=== PATIENT | male | born 1970 | race Caucasian/White ===

== ENCOUNTER 2016-11-10 07:36 | Emergency (ER) | payer OTHER ==
[~2016-11-10] VITALS: Ht 177.8 cm; Wt 78.9 kg
[~2016-11-10 07:36] MED LIST: CPR500T PO; CYCL10TA9 PO; HYDR-3583 PO; IBP800T PO; NAPR-243 PO; NAPR500T3 PO; PHEN200T27 PO; SILV20CR14 TP
--- NOTE | 2016-11-10 08:24 | ED Upper Extremity ---
General Chief Complaint: Upper Extremity Stated Complaint: RIGHT WRIST INJURY Nursing Triage Note: PT CO OF R WRIST PAIN HIT W MACHINERY AT WORK THIS AM. PT HAS ABRASION NOTED ON WRIST Nursing Sepsis Screen: No Definite Risk Source: patient Exam Limitations: no limitations History of Present Illness Time seen by provider: 08:05 Initial Comments This 46-year-old gentleman presents to the emergency room with injury to the right wrist. The injury occurred at work when he was unpacking a piece of equipment. There was a spring loaded cage made of half inch metal bars that struck his right wrist at high velocity. He has a minor injury to the left hand as well that is no longer painful. He has trouble with range of motion of the wrist and hand secondary to pain in the right wrist. There is a streak of erythema associated with the area of tenderness on the radial aspect of the right wrist. The injury occurred at approximately 05:20. Onset: this morning Allergies and Home Medications Allergies Coded Allergies: No Known Drug Allergies (Unverified , 12/12/11) Home Medications No Active Prescriptions or Reported Meds Constitutional: no symptoms reported EENTM: no symptoms reported Respiratory: no symptoms reported Cardiovascular: no symptoms reported Gastrointestinal: no symptoms reported Genitourinary: no symptoms reported Musculoskeletal: see HPI Skin: see HPI Psychiatric/Neurological: No Symptoms Reported Past Eppbqon-Djjrea-Blrqby Hx Patient Social History Alcohol Use: Rarely Uses Recreational Drug Use: No Smoking Status: Never a Smoker Recent Foreign Travel: No Contact w/Someone Who Travel: No Recent Infectious Disease Expo: No Recent Hopitalizations: No Immunizations Up To Date Tetanus Booster (TDap): Less than 5yrs Seasonal Allergies Seasonal Allergies: No Surgeries HX Surgeries: No Respiratory Hx Respiratory Disorders: No Cardiovascular Hx Cardiac Disorders: Yes Cardiac Disorders: Hypertension Neurological Hx Neurological Disorders: No Reproductive System Hx Reproductive Disorders: No Genitourinary Hx Genitourinary Disorders: No Gastrointestinal Hx Gastrointestinal Disorders: No Musculoskeletal Hx Musculoskeletal Disorders: Yes ([place] reports arthritis of [place]) Musculoskeletal Disorders: Arthritis Endocrine Hx Endocrine Disorders: No HEENT HX ENT Disorders: No Cancer Hx Cancer: No Psychosocial Hx Psychiatric Problems: No Integumentary HX Skin/Integumentary Disorder: No Blood Transfusions Hx Blood Disorders: No Family Medical History Significant Family History: No Pertinent Family Hx Physical Exam Vital Signs Vital Sign - Last 12Hours 11/10/16 07:40 Temp 97.8 Pulse 75 Resp 18 B/P 120/96 Pulse Ox 99 Capillary Refill : Less Than 3 Seconds General Appearance: WD/WN no apparent distress HEENT: normal ENT inspection Cardiovascular: regular rate, rhythm no edema no murmur Respiratory: lungs clear normal breath sounds no respiratory distress no accessory muscle use Shoulder: normal inspection no evidence of injury Elbow/Forearm: normal inspection, no evidence of injury, normal ROM Wrist: Yes bone tenderness, Yes limited ROM, Yes swelling (erythema and tenderness over the radial aspect of the wrist. Range of motion in the wrist and hand decreased secondary to pain. 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 See report below: NAME: AGATHARYDER Pires [facility] REC#: [id number] PT STATUS: REG ER : 1970 PHYSICIAN: ANNA MARIE HOOKS MD ADMIT DATE: 11/10/16/ER Draft Date of Exam:11/10/16 WRIST, RIGHT, 3 VIEWS OR MORE 4 views of the right wrist. INDICATION: Injury. FINDINGS: There is no fracture, dislocation, or radiopaque foreign body. Joint alignment is satisfactory. IMPRESSION: Unremarkable exam. Dictated on workstation # [id number] Dict: 11/10/1627 Trans: 11/10/16 0835 [id number] Interpreted by: NATHANIEL GUTIERRES MD Departure Impression Impression: Primary Impression: Contusion of wrist, right Disposition: 01 HOME, SELF-CARE Condition: Stable Departure-Patient Inst. Decision time for Depature: 08:45 Referrals: NO,LOCAL PHYSICIAN (PCP/Family) Primary Care Physician Patient Instructions: Contusion (DC) Add. Discharge Instructions: Rest, icing in 20 minute intervals, and elevation should help with pain and swelling. Use of a wrist brace is optional to help alleviate strain on the wrist. Follow-up with occupational health for full clearance. You may use ibuprofen up to 800 mg every 8 hours as needed for pain. Add Tylenol ( acetaminophen) up to 1000 mg every 6 hours as needed for additional pain relief. All discharge instructions reviewed with patient and/or family. Voiced understanding. Scripts No Active Prescriptions or Reported Meds ANNA MARIE HOOKS MD Nov 10, 2016 08:24
--- NOTE | 2016-11-10 08:35 | Diagnostic Imaging Report ---
4 views of the right wrist. INDICATION: Injury. FINDINGS: There is no fracture, dislocation, or radiopaque foreign body. Joint alignment is satisfactory. IMPRESSION: Unremarkable exam. Dictated by: Dictated on workstation # [id number]
[2016-11-10 08:50] VITALS: BP 120/96
== END 2016-11-10 08:50 | disposition home or self-care (01) ==
LOC: EDUNIT# 07:36 → ER 07:40
DX: S60.211A Contusion of right wrist, initial encounter (principal); W31.9XXA Contact with unspecified machinery, initial encounter; Y92.59 Other trade areas as the place of occurrence of the external cause; Y99.0 Civilian activity done for income or pay
CPT/HCPCS: 73110; 99282

== ENCOUNTER 2017-01-12 15:28 | Emergency (ER) | payer OTHER ==
[~2017-01-12] VITALS: Ht 177.8 cm; Wt 78.9 kg
[2017-01-12] MEDS ORDERED: SULF1TAB35 PO (16:29)
--- NOTE | 2017-01-12 16:30 | ED Integumentary General ---
General Chief Complaint: Skin/Wound Problems Stated Complaint: BUG BITE ON L HAND Nursing Triage Note: PT C/O POSSIBLE SPIDER BITE TO L HAND. Source: patient Exam Limitations: no limitations History of Present Illness Time seen by provider: 16:15 Initial Comments This 46-year-old gentleman presents with a pustular lesion on the dorsum of the left hand with erythema extending beyond and a 2-4 cm radius. The lesion started yesterday and was pruritic but today became pustular and painful. He denies any fever or systemic symptoms. He does have a history of skin infections. Allergies and Home Medications Allergies Coded Allergies: No Known Drug Allergies (Unverified , 12/12/11) Home Medications Sulfamethoxazole/Trimethoprim 1 Each Tablet, 1 EACH PO BID, #14 Prescribed by: ANNA MARIE MEDELLIN on 01/12/17 6200 Constitutional: no symptoms reported EENTM: no symptoms reported Respiratory: no symptoms reported Cardiovascular: no symptoms reported Gastrointestinal: no symptoms reported Musculoskeletal: no symptoms reported Skin: see HPI Psychiatric/Neurological: No Symptoms Reported Past Zlpisgq-Qejrop-Rxunjj Hx Patient Social History Alcohol Use: Denies Use Recreational Drug Use: No Smoking Status: Never a Smoker 2nd Hand Smoke Exposure: No Recent Foreign Travel: No Contact w/Someone Who Travel: No Recent Infectious Disease Expo: No Recent Hopitalizations: No Immunizations Up To Date Tetanus Booster (TDap): Less than 5yrs Seasonal Allergies Seasonal Allergies: No Surgeries HX Surgeries: No Respiratory Hx Respiratory Disorders: No Cardiovascular Hx Cardiac Disorders: Yes Cardiac Disorders: Hypertension Neurological Hx Neurological Disorders: No Reproductive System Hx Reproductive Disorders: No Genitourinary Hx Genitourinary Disorders: No Gastrointestinal Hx Gastrointestinal Disorders: No Musculoskeletal Hx Musculoskeletal Disorders: Yes ([place] reports arthritis of [place]) Musculoskeletal Disorders: Arthritis Endocrine Hx Endocrine Disorders: No HEENT HX ENT Disorders: No Cancer Hx Cancer: No Psychosocial Hx Psychiatric Problems: No Integumentary HX Skin/Integumentary Disorder: No Blood Transfusions Hx Blood Disorders: No Family Medical History Significant Family History: No Pertinent Family Hx Physical Exam Vital Signs Vital Sign - Last 12Hours 01/12/17 15:54 Temp 98.3 Pulse 75 Resp 18 B/P (MAP) 131/92 Pulse Ox 98 O2 Delivery Room Air Capillary Refill : Less Than 3 Seconds Progress/Results/Core Measures Results/Orders Vital Signs/I&O Vital Sign - Last 12Hours 01/12/17 01/12/17 15:54 16:42 Temp 98.3 98.3 Pulse 75 75 Resp 18 18 B/P (MAP) 131/92 Pulse Ox 98 98 O2 Delivery Room Air Blood Pressure Mean: 105 Progress Note : Progress Note Skin was cleaned with alcohol. The pustular lesion was unroofed with a scalpel and a small quantity of purulent drainage was expressed. The skin was then again cleaned with alcohol. Antibiotic ointment was applied. Margins of the erythema were marked with a skin marker. A Band-Aid was placed over the lesion. Return precautions were discussed and Bactrim DS was prescribed. Departure Impression Impression: Primary Impression: Cellulitis and abscess of hand Disposition: HOME, SELF-CARE Condition: Improved Departure-Patient Inst. Decision time for Depature: 16:15 Referrals: NO,LOCAL PHYSICIAN (PCP/Family) Primary Care Physician Patient Instructions: Skin Abscess, Cellulitis (Skin Infection), Adult (DC) Add. Discharge Instructions: Track the progression of your cellulitis. If the redness extends significantly beyond the borders marked in the ER, please return to care. If you develop worsening symptoms such as fever or larger abscess development, please return to the emergency room. You may continue applying antibiotic cream until healed. Complete your antibiotics as prescribed. Please start your antibiotics today. All discharge instructions reviewed with patient and/or family. Voiced understanding. Scripts Sulfamethoxazole/Trimethoprim (Bactrim Ds Tablet) 1 Each Tablet 1 EACH PO BID, #14 TAB Prov: ANNA MARIE HOOKS MD 01/12/17 ANNA MARIE HOOKS MD January 12, 2017 16:30
[2017-01-12 16:42] VITALS: BP 131/92
== END 2017-01-12 16:42 | disposition home or self-care (01) ==
LOC: EDUNIT# 15:28 → ER 15:30
DX: L03.114 Cellulitis of left upper limb (principal)
CPT/HCPCS: 99281

== ENCOUNTER 2019-07-03 20:24 | Observation (INO) | payer BC, OTHER ==
[~2019-07-03] VITALS: Ht 180.3 cm; Wt 79.8 kg
[~2019-07-03 20:24] MED LIST changes: +NAPR-915 PO; -NAPR500T3 PO; +SULF1TAB35 PO
[2019-07-03] MEDS ORDERED: RT-ALBUTEROL SULF 2.5 MG/3 ML PRE-MIX VIAL INH STA (20:32)
[2019-07-03] MEDS ORDERED: methylPREDNISolone 125 MG (Solu-MEDROL) VIAL IV STA (20:32)
[2019-07-03] MEDS ORDERED: DEXAMETHASONE 10 MG/ML (DECADRON) 1 ML VIAL ONE (20:37)
[2019-07-03] MEDS ORDERED: DEXAMETHASONE 4 MG/ML SDV (DECADRON) IH ONE (20:45)
[2019-07-03] MEDS ORDERED: RT-ALBUTEROL/IPRATROPIUM 3 ML (DUONEB) VIAL INH ONE (20:45)
[2019-07-03 20:47] LABS: BASOPHILS # (AUTO) 0.1 10^3/uL (0.0-0.1); BASOPHILS % (AUTO) 1 % (0-10); EOSINOPHILS % (AUTO) 9 % (0-10); HEMATOCRIT 45 % (40-54); HEMOGLOBIN 15.6 G/DL (13.3-17.7); LYMPHOCYTES # (AUTO) 3.8 X 10^3 (1.0-4.0); LYMPHOCYTES % (AUTO) 32 % (12-44); MEAN CORPUSCULAR HEMOGLOBIN 32 PG (25-34); MEAN CORPUSCULAR HGB CONC 35 G/DL (32-36); MEAN CORPUSCULAR VOLUME 91 FL (80-99); MONOCYTES % (AUTO) 8 % (0-12); NEUTROPHILS # (AUTO) 6.1 X 10^3 (1.8-7.8); NEUTROPHILS % (AUTO) 51 % (42-75); PLATELET COUNT 253 10^3/uL (130-400); RED CELL DISTRIBUTION WIDTH 12.5 % (10.0-14.5)
--- NOTE | 2019-07-03 20:49 | ED Respiratory ---
General Chief Complaint: Respiratory Problems Stated Complaint: SOA Source: patient, spouse History of Present Illness Date Seen by Provider: Jul 03, 2019 Time Seen by Provider: 20:29 Initial Comments PT ARRIVES VIA POV FROM HOME C/O SHORTNESS OF BREATH PT STATES HE HAS ASTHMA, AND HAS HAD INCREASING SHORTNESS OF BREATH OVER THE LAST WEEK, AND HAS BEEN MUCH WORSE SINCE YESTERDAY HAS BEEN USING ALBUTEROL PROAIR INHALER WITHOUT RELIEF STATES THAT SYMPTOMS HAVE ACTUALLY BEEN GOING ON FOR OVER A MONTH--PT IS A RUNNER/RUNS MARATHONS, AND IN THE LAST MONTH, HE HAS NOT BEEN ABLE TO COMPLETE 2 DIFFERENT MARATHONS--HAD TO STOP AFTER THE FIRST MILE EACH TIME. OVERALL EXERCISE TOLERANCE HAS BEEN DECREASING OVER THE LAST FEW MONTHS, DUE TO BREATHING ISSUES. ALSO REPORTS THAT HE WAKES UP EVERY NIGHT WITH DIFFICULTY BREATHING AND HAS TO USE HIS INHALER. SHE STATES HE IS USING HIS INHALER MUCH MORE THAN HE IS SUPPOSED TO. DOES NOT APPEAR TO BE SEASONAL. PT DENIES FEVER CHEST FEELS TIGHT, BUT ONLY DUE TO BREATHING. NOT HAVING CHEST PAIN OTHER BURNS. ONLY HAS OCCASIONAL COUGH NO ALLERGY OR URI SYMPTOMS HAS NOT SOUGHT CARE UNTIL TODAY. STATES HE HAD ASTHMA A CHILD, THEN SORT OF GREW OUT OF IT, THEN STARTING HAVING PROBLEMS AN ADULT. PT HAS NEVER SEEN A HEEL MOLDER. PCP: DR. DAMION GOMEZ--HAS NOT SEEN IN OVER A YEAR ALSO GOES TO [place]--HAS APPOINTMENT WITH THEM NEXT MONTH FOR ROUTINE EXAM. Allergies and Home Medications Allergies Coded Allergies: No Known Drug Allergies (Unverified , 12/12/11) Home Medications Sulfamethoxazole/Trimethoprim 1 Each Tablet, 1 EACH PO BID Prescribed by: ANNA MARIE MEDELLIN on 01/12/17 7459 Review of Systems Review of Systems Constitutional: no symptoms reported EENTM: no symptoms reported Respiratory: see HPI, cough, dyspnea on exertion, short of breath, wheezing Cardiovascular: see HPI, chest pain; No edema, No palpitations, No syncope, No other Gastrointestinal: no symptoms reported Genitourinary: no symptoms reported Musculoskeletal: no symptoms reported Skin: no symptoms reported Psychiatric/Neurological: No Symptoms Reported Hematologic/Lymphatic: No Symptoms Reported Immunological/Allergic: no symptoms reported Past Zluwxmx-Okybpx-Nxgdfj Hx Patient Social History Alcohol Use: Denies Use Recreational Drug Use: No Smoking Status: Never a Smoker 2nd Hand Smoke Exposure: No Recent Foreign Travel: No Contact w/Someone Who Travel: No Recent Hopitalizations: No Immunizations Up To Date Tetanus Booster (TDap): Less than 5yrs Seasonal Allergies Seasonal Allergies: No Past Medical History Surgeries: No Respiratory: Yes Asthma Cardiac: Yes Hypertension Neurological: No Reproductive Disorders: No Genitourinary: No Gastrointestinal: No Musculoskeletal: Yes Arthritis Endocrine: No HEENT: No Cancer: No Psychosocial: No Integumentary: No Blood Disorders: No Family Medical History No Pertinent Family Hx Physical Exam Vital Signs - First Documented 07/03/19 20:29 Temp 36.6 Pulse 81 Resp 30 B/P (MAP) 148/81 (103) Pulse Ox 94 O2 Delivery Room Air Capillary Refill : Height: 5'10" Weight: 174lbs. oz. 78.319662bq; 20.50 BMI Method:Stated General Appearance: WD/WN, mild distress HEENT: PERRL/EOMI, normal ENT inspection, TMs normal, pharynx normal Neck: normal inspection Respiratory: respiratory distress, decreased breath sounds, accessory muscle use; No rales, No rhonchi; wheezing, expiration, other (MILD RESPIRATORY DISTRESS. 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, no motor/sensory deficits, alert, oriented x 3 Skin: normal color, warm/dry Progress/Results/Core Measures Suspected Sepsis SIRS Temperature: Pulse: Respiratory Rate: Laboratory Tests 07/03/19 20:32: White Blood Count 12.0H Blood Pressure / Mean: Laboratory Tests 07/03/19 20:32: Creatinine 0.82, INR Comment 1.0, Platelet Count 253, Total Bilirubin 0.5 Results/Orders Lab Results Laboratory Tests Test 07/03/19 20:32 Range/Units White Blood Count 12.0 H 4.3-11.0 10^3/uL Red Blood Count 4.87 4.35-5.85 10^6/uL Hemoglobin 15.6 13.3-17.7 G/DL Hematocrit 45 40-54 % Mean Corpuscular Volume 91 80-99 FL Mean Corpuscular Hemoglobin 32 25-34 PG Mean Corpuscular Hemoglobin Concent 35 32-36 G/DL Red Cell Distribution Width 12.5 10.0-14.5 % Platelet Count 253 130-400 10^3/uL Mean Platelet Volume 11.0 H 7.4-10.4 FL Neutrophils (%) (Auto) 51 42-75 % Lymphocytes (%) (Auto) 32 12-44 % Monocytes (%) (Auto) 8 0-12 % Eosinophils (%) (Auto) 9 0-10 % Basophils (%) (Auto) 1 0-10 % Neutrophils # (Auto) 6.1 1.8-7.8 X 10^3 Lymphocytes # (Auto) 3.8 1.0-4.0 X 10^3 Monocytes # (Auto) 1.0 0.0-1.0 X 10^3 Eosinophils # (Auto) 1.0 H 0.0-0.3 10^3/uL Basophils # (Auto) 0.1 0.0-0.1 10^3/uL Prothrombin Time 13.6 12.2-14.7 SEC INR Comment 1.0 0.8-1.4 Activated Partial Thromboplast Time 25 24-35 SEC Sodium Level 143 135-145 MMOL/L Potassium Level 4.2 3.6-5.0 MMOL/L Chloride Level 107 98-107 MMOL/L Carbon Dioxide Level 26 21-32 MMOL/L Anion Gap 10 5-14 MMOL/L Blood Urea Nitrogen 11 7-18 MG/DL Creatinine 0.82 0.60-1.30 MG/DL Estimat Glomerular Filtration Rate > 60 BUN/Creatinine Ratio 13 Glucose Level 87 70-105 MG/DL Calcium Level 10.1 8.5-10.1 MG/DL Corrected Calcium 8.5-10.1 MG/DL Magnesium Level 2.2 1.6-2.4 MG/DL Total Bilirubin 0.5 0.1-1.0 MG/DL Aspartate Amino Transf (AST/SGOT) 17 5-34 U/L Alanine Aminotransferase (ALT/SGPT) 27 0-55 U/L Alkaline Phosphatase 59 40-136 U/L Total Creatine Kinase 37 30-200 U/L Creatine Kinase MB 2.3 <6.6 NG/ML Myoglobin 42.6 10.0-92.0 NG/ML Troponin I < 0.028 <0.028 NG/ML B-Type Natriuretic Peptide 22.1 <100.0 PG/ML Total Protein 7.4 6.4-8.2 GM/DL Albumin 4.6 H 3.2-4.5 GM/DL Micro Results Microbiology 07/03/19 Influenza Types A,B Antigen (PATRICIA) - Final, Complete My Orders Orders - REGAN FLORES DO Ed Iv/Invasive Line Start (07/03/19 20:32) Ekg Tracing (07/03/19:32) O2 (07/03/19:32) Monitor-Rhythm Ecg Trace Only (07/03/19:32) Chest 1 View, Ap/Pa Only (07/03/19:32) BNP (07/03/19:32) Cbc With Automated Diff (07/03/19:) Comprehensive Metabolic Panel (07/03/19) Creatine Kinase (07/03/19:) Creatine Kinase Mb (07/03/19:32) Magnesium (07/03/19:32) Protime With Inr (07/03/19:) Partial Thromboplastin Time (07/03/19:32) Troponin I (07/03/19:32) Influenza A And B Antigens (07/03/19:32) Myoglobin Serum (07/03/19:32) Albuterol Pre-Mix Nebs (Rt) (Proventil (07/03/19:32) Albuterol/Ipra Inhalation Soln (Duoneb I (07/03/19 20:45) Dexamethasone Injection (Decadron Inject (07/03/19 20:45) Rt Request For Service (07/03/19:32) Methylprednisolone Sod Succ (Solu-Medrol (07/03/19 20:32) Svn Small Volume Nebulizer (07/03/19 20:32) Svn Small Volume Nebulizer (07/03/19 20:32) Dexamethasone Injection (Decadron Inject (07/03/19 20:37) Magnesium 1 Gm/100 Ml Ivpb (Magnesium Doe (07/03/19 21:45) Medications Given in ED Current Medications Medications Dose Ordered Sig/Elizabeth Route Start Time Stop Time Status Last Admin Dose Admin Albuterol/ Ipratropium 3 ml ONCE ONCE INH 07/03/19 20:45 07/03/19 20:46 DC 10/22/19 20:46 3 ML Dexamethasone Sodium Phosphate 20 mg ONCE ONCE IH 07/03/19 20:45 07/03/19 20:46 DC 07/03/19 20:47 20 MG Vital Signs/I&O 07/03/19 07/03/19 20:29 20:49 Temp 36.6 Pulse 81 Resp 30 B/P (MAP) 148/81 (103) Pulse Ox 94 94 O2 Delivery Room Air Room Air Capillary Refill : Progress Note : Progress Note GIVEN HOUR LONG NEB TREATMENT, IV STEROIDS WITH MODERATE IMPROVEMENT IN SYMPTOMS. PT'S BREATHING IS NO LONGER LABORED, INCREASED AERATION, WITH DECREASED WHEEZING, BUT STILL WITH MODERATE AMOUNT OF RESIDUAL WHEEZING BILATERALLY ECG Initial ECG Impression Date: Jul 03, 2019 Initial ECG Impression Time: 20:34 Initial ECG Rate: 74 Initial ECG Rhythm: Normal Sinus Diagnostic Imaging Comments CXR--NO ACUTE PROCESS, PER RADIOLOGIST REPORT AT 2130 Reviewed: Reviewed by Me Departure Communication (Admissions) 2137--SPOKE WITH DR. DAMION GOMEZ, ACCEPTS PT FOR ADMIT. WILL CONSULT DR. OCONNELL IN AM. Impression Primary Impression: Asthma with acute exacerbation in adult Disposition: 09 ADMITTED INPATIENT Condition: Improved Admissions Decision to Admit Reason: Admit from ER (General) Decision to Admit/Date: Jul 03, 2019 Time/Decision to Admit Time: 21:40 Departure-Patient Inst. Referrals: NO,LOCAL PHYSICIAN (PCP/Family) Primary Care Physician REGAN FLORES DO Jul 03, 2019 20:49
[2019-07-03 21:11] LABS: ALANINE AMINOTRANSFERASE 27 U/L (0-55); ALBUMIN 4.6 GM/DL (3.2-4.5); ALKALINE PHOSPHATASE 59 U/L (40-136); BILIRUBIN,TOTAL 0.5 MG/DL (0.1-1.0); BUN/CREATININE RATIO 13; CALCIUM 10.1 MG/DL (8.5-10.1); CARBON DIOXIDE 26 MMOL/L (21-32); CHLORIDE 107 MMOL/L (98-107); CREATINE KINASE 37 U/L (30-200); CREATININE SERUM 0.82 MG/DL (0.60-1.30); GFR ESTIMATED > 60; GLUCOSE 87 MG/DL (70-105); MAGNESIUM 2.2 MG/DL (1.6-2.4); POTASSIUM 4.2 MMOL/L (3.6-5.0); SODIUM 143 MMOL/L (135-145); TOTAL PROTEIN 7.4 GM/DL (6.4-8.2)
[2019-07-03 21:14] LABS: PROTHROMBIN TIME PATIENT 13.6 SEC (12.2-14.7)
[2019-07-03 21:18] LABS: CREATINE KINASE MB 2.3 NG/ML (<6.6)
--- NOTE | 2019-07-03 21:30 | Diagnostic Imaging Report ---
Clinical Indication: Patient with shortness of air. Exam: Portable chest x-ray upright view. Comparisons: None. Findings: Lungs/pleura: Lungs are clear. There is no pneumothorax. There is no pleural effusion. Mediastinum: Unremarkable. Pulmonary vasculature: Unremarkable. Heart: Unremarkable. Bones/extrathoracic soft tissue: Unremarkable. Impression: There is no radiographic evidence of acute cardiopulmonary process. Dictated by: Dictated on workstation # [id number]
[2019-07-03] MEDS: MAGNESIUM 1 GM/100 ML IVPB 100 ML IV SCH ×2 (21:48→22:41)
--- NOTE | 2019-07-03 22:05 | NUR ---
RYDER SNIDER JR admitted to room 424-1, with an admitting diagnosis of ASTHMA EXACERBATION, on 07/03/19 from ED via WC, accompanied by STAFF AND S.O.RYDER SNIDER JR introduced to surroundings, call light, bed controls, phone, TV, temperature control, lights, meal times, smoking policy, visitor policy, side rail policy, bathrooms and showers.
[2019-07-03 22:12] VITALS: BP 143/94
[2019-07-03 23:50] VITALS: BP 133/88
[2019-07-04] VITALS: BP 133/88
[2019-07-04] MEDS ORDERED: RT-ALBUTEROL/IPRATROPIUM 3 ML (DUONEB) VIAL INH PRN (01:15)
[2019-07-04] MEDS: methylPREDNISolone 125 MG (Solu-MEDROL) VIAL IVP SCH ×2 (02:14→08:03)
[2019-07-04 04:15] VITALS: BP 126/87
[2019-07-04 05:37] LABS: BASOPHILS % (AUTO) 0 % (0-10); EOSINOPHILS % (AUTO) 0 % (0-10); HEMATOCRIT 43 % (40-54); HEMOGLOBIN 15.3 G/DL (13.3-17.7); LYMPHOCYTES # (AUTO) 1.2 X 10^3 (1.0-4.0); LYMPHOCYTES % (AUTO) 11 % (12-44); MEAN CORPUSCULAR HEMOGLOBIN 32 PG (25-34); MEAN CORPUSCULAR HGB CONC 35 G/DL (32-36); MEAN CORPUSCULAR VOLUME 91 FL (80-99); MEAN PLATELET VOLUME 11.1 FL (7.4-10.4); MONOCYTES # (AUTO) 0.1 X 10^3 (0.0-1.0); MONOCYTES % (AUTO) 1 % (0-12); NEUTROPHILS # (AUTO) 9.9 X 10^3 (1.8-7.8); NEUTROPHILS % (AUTO) 88 % (42-75); PLATELET COUNT 246 10^3/uL (130-400); RED CELL DISTRIBUTION WIDTH 12.3 % (10.0-14.5); WHITE BLOOD COUNT 11.2 10^3/uL (4.3-11.0)
[2019-07-04 06:07] LABS: ALANINE AMINOTRANSFERASE 21 U/L (0-55); ALBUMIN 4.4 GM/DL (3.2-4.5); ALKALINE PHOSPHATASE 57 U/L (40-136); BILIRUBIN,TOTAL 0.6 MG/DL (0.1-1.0); BUN/CREATININE RATIO 17; CALCIUM 9.7 MG/DL (8.5-10.1); CARBON DIOXIDE 22 MMOL/L (21-32); CHLORIDE 107 MMOL/L (98-107); CREATININE SERUM 0.82 MG/DL (0.60-1.30); GFR ESTIMATED > 60; GLUCOSE 146 MG/DL (70-105); MAGNESIUM 2.4 MG/DL (1.6-2.4); POTASSIUM 4.5 MMOL/L (3.6-5.0); SODIUM 141 MMOL/L (135-145); TOTAL PROTEIN 6.9 GM/DL (6.4-8.2)
[2019-07-04] MEDS ORDERED: RT-ALBUTEROL/IPRATROPIUM 3 ML (DUONEB) VIAL INH SCH (07:00)
[2019-07-04 08:00] VITALS: BP 138/82
[2019-07-04] MEDS ORDERED: RT-BUDESONIDE NEBS 0.5 MG/2ML (PULMICORT) AMP INH SCH (09:00)
--- NOTE | 2019-07-04 10:19 | History & Physical ---
History of Present Illness History of Present Illness Reason for visit/HPI 49 yo M admitted for acute asthma exacerbation. He has been have more trouble with his asthma recently- waking up with coughing and using his albuterol that does help. He recently attempted a half marathon in [place] (2 weeks ago) and had to stop after about 3 miles. He thinks anxiety played a role due to thousands of runners. Similar thing happened in stopping at the 1 mile manuel. [facility]. He tried running on Tuesday07/01/19 and he has trouble breathing so he stopped (there were only 2 runners); so anxiety did not play a role in this one. Pt presenting last night wheezing and having trouble breathing. An hour long breathing treatment, magnesium, duonebs, and IV steroids helped. He is feeling better this AM, still not desiring to run but feeling good enough to go home. He plans to start running in the Spring again. He does run to work (about [address]) and usually has no trouble running doing this. He denies any other signs of illness. Date of Admission Jul 03, 2019 at 21:38 Date Seen by a Provider: Jul 04, 2019 Time Seen by a Provider: 08:10 I consulted on this patient on 07/04/19 10:13 Attending Physician Kwesi Gomez MD Admitting Physician Kwesi Gomez MD Consult Allergies and Home Medications Allergies Coded Allergies: No Known Drug Allergies (Unverified , 12/12/11) Patient Home Medication List Home Medication List Reviewed: Yes Past Nqrzbpt-Ybjrsf-Azarna Hx Patient Social History Alcohol Use: Denies Use Recreational Drug Use: No Smoking Status: Never a Smoker 2nd Hand Smoke Exposure: No Recent Foreign Travel: No Contact w/other who traveled: No Recent Hopitalizations: No Recent Infectious Disease Expo: No Immunizations Up To Date Tetanus Booster (TDap): Less than 5yrs Seasonal Allergies Seasonal Allergies: No Surgeries No Respiratory Yes Cardiovascular Yes Hypertension Neurological No Reproductive System Hx Reproductive Disorders: No Genitourinary No Gastrointestinal No Musculoskeletal Yes Arthritis Endocrine History of Endocrine Disorders: No HEENT History of HEENT Disorders: No Cancer No Psychosocial History of Psychiatric Problem: No Integumentary History of Skin or Integumenta: No Blood Transfusions History of Blood Disorders: No Family Medical History Significant Family History: No Pertinent Family Hx Family Hx: FH: COPD (chronic obstructive pulmonary disease) 19 MOTHER HEART ISSUES 19 FATHER Review of Systems Review of Systems General: No Chills, No Night Sweats HEENT: No Head Aches, No Visual Changes Pulmonary: Dyspnea, Cough Cardiovascular: No: Chest Pain, Palpitations Gastrointestinal: No: Nausea, Vomiting, Abdominal Pain Genitourinary: No Dysuria Musculoskeletal: No: shoulder pain Neurological: No: Weakness, Numbness, Change in speech, Confusion Physical Exam Vital Signs Vital Signs - First Documented 07/03/19 07/03/19 20:29 22:00 Temp 36.6 Pulse 81 Resp 30 B/P (MAP) 148/81 (103) Pulse Ox 94 O2 Delivery Room Air O2 Flow Rate 2.00 Capillary Refill : Less Than 3 Seconds Height, Weight, BMI Height: 5'10" Weight: 174lbs. oz. 78.638084fr; 24.45 BMI Method:Stated General Appearance: No Apparent Distress, WD/WN HEENT: PERRL/EOMI Neck: Full Range of Motion, Non Tender, Supple Respiratory: Chest Non Tender, Lungs Clear, No Accessory Muscle Use, No Respiratory Distress, Decreased Breath Sounds (minimal wheeze) Cardiovascular: Regular Rate, Rhythm, No Edema, No Murmur Gastrointestinal: Normal Bowel Sounds, Soft Rectal: Deferred Extremity: Normal Capillary Refill, Normal Range of Motion, Non Tender, No Calf Tenderness Neurologic/Psychiatric: Alert, Oriented x3, No Motor/Sensory Deficits, Normal Mood/Affect Skin: Normal Color, Warm/Dry Assessment/Plan Assessment/Plan Admission Dx acute respiratory distress acute exacerbation of asthma Admission Status: Observation Assessment and Plan will start him on a controller medication- breo vs advair- of course insurance will dictate what we prescribe. will do a steroid taper as well. albuterol prn rescue inhaler. avoid second hand smoke exposure. [facility]- we will also refer to Dr. Garrett for follow up/establishment of care. [facility] - depending on scheduling/cost/convenience ambulate for DVT ppx Dispo: discharge to home Problems: (1) Asthma with acute exacerbation in adult Qualifiers: Qualified Codes: J45.21 - Mild intermittent asthma with (acute) exacerbation (2) Anxiety Clinical Quality Measures DVT/VTE Risk/Contraindication: Risk Factor Score Per Nursin RFS Level Per Nursing on Admit: 1=Low/No VTE PPX KWESI GOMEZ MD Jul 04, 2019 10:19
--- NOTE | 2019-07-04 10:27 | Discharge Summary ---
Discharge Summary Hospital Course Was the Problem List Reviewed?: Yes Problems/Dx: (1) Asthma with acute exacerbation in adult Status: Acute Qualifiers: Qualified Codes: J45.21 - Mild intermittent asthma with (acute) exacerbation (2) Anxiety Hospital Course Date of Admission: Jul 03, 2019 at 21:38 Admission Diagnosis : Family Physician/Provider: Kwesi Gomez MD Date of Discharge: 07/04/19 Discharge Diagnosis: [ Acute asthma exacerbation] Hospital Course: [ ER interventions improved his asthma exacerbation enough that he was stable to be discharge to home with steroid taper and maintenance inhaler with albuterol rescue inhaler.] Labs and Pending Lab Test: Laboratory Tests 07/03/19 20:32: White Blood Count 12.0H, Red Blood Count 4.87, Hemoglobin 15.6, Hematocrit 45, Mean Corpuscular Volume 91, Mean Corpuscular Hemoglobin 32, Mean Corpuscular Hemoglobin Concent 35, Red Cell Distribution Width 12.5, Platelet Count 253, Mean Platelet Volume 11.0H, Neutrophils (%) (Auto) 51, Lymphocytes (%) (Auto) 32, Monocytes (%) (Auto) 8, Eosinophils (%) (Auto) 9, Basophils (%) (Auto) 1, Neutrophils # (Auto) 6.1, Lymphocytes # (Auto) 3.8, Monocytes # (Auto) 1.0, Eosinophils # (Auto) 1.0H, Basophils # (Auto) 0.1, Prothrombin Time 13.6, INR Comment 1.0, Activated Partial Thromboplast Time 25, Sodium Level 143, Potassium Level 4.2, Chloride Level 107, Carbon Dioxide Level 26, Anion Gap 10, Blood Urea Nitrogen 11, Creatinine 0.82, Estimat Glomerular Filtration Rate > 60, BUN/Creatinine Ratio 13, Glucose Level 87, Calcium Level 10.1, Corrected Calcium , Magnesium Level 2.2, Total Bilirubin 0.5, Aspartate Amino Transf (AST/SGOT) 17, Alanine Aminotransferase (ALT/SGPT) 27, Alkaline Phosphatase 59, Total Creatine Kinase 37, Creatine Kinase MB 2.3, Myoglobin 42.6, Troponin I < 0.028, B-Type Natriuretic Peptide 22.1, Total Protein 7.4, Albumin 4.6H 07/04/19 05:05: White Blood Count 11.2H, Red Blood Count 4.78, Hemoglobin 15.3, Hematocrit 43, Mean Corpuscular Volume 91, Mean Corpuscular Hemoglobin 32, Mean Corpuscular Hemoglobin Concent 35, Red Cell Distribution Width 12.3, Platelet Count 246, Mean Platelet Volume 11.1H, Neutrophils (%) (Auto) 88H, Lymphocytes (%) (Auto) 11L, Monocytes (%) (Auto) 1, Eosinophils (%) (Auto) 0, Basophils (%) (Auto) 0, Neutrophils # (Auto) 9.9H, Lymphocytes # (Auto) 1.2, Monocytes # (Auto) 0.1, Eosinophils # (Auto) 0.0, Basophils # (Auto) 0.0, Sodium Level 141, Potassium Level 4.5, Chloride Level 107, Carbon Dioxide Level 22, Anion Gap 12, Blood Urea Nitrogen 14, Creatinine 0.82, Estimat Glomerular Filtration Rate > 60, BUN/Creatinine Ratio 17, Glucose Level 146H, Calcium Level 9.7, Corrected Calcium 9.4, Magnesium Level 2.4, Total Bilirubin 0.6, Aspartate Amino Transf (AST/SGOT) 16, Alanine Aminotransferase (ALT/SGPT) 21, Alkaline Phosphatase 57, Total Protein 6.9, Albumin 4.4 Microbiology 07/03/19 Influenza Types A,B Antigen (PATRICIA) - Final, Complete Home Meds Active Assessment/Pt Instructions will start him on a controller medication- breo vs advair- of course insurance will dictate what we prescribe. will do a steroid taper as well. albuterol prn rescue inhaler. avoid second hand smoke exposure. [facility]- we will also refer to Dr. Garrett for follow up/establishment of care. He may [facility] - depending on scheduling/cost/convenience Discharge Instructions Discharge Diet: Regular Diet Activity as Tolerated: Yes Discharge Physical Examination Vital Signs Vital Signs Date Time Temp Pulse Resp B/P (MAP) Pulse Ox O2 Delivery O2 Flow Rate FiO2 07/04/19 08:15 97 Room Air 07/04/19 08:00 36.4 70 20 138/82 (100) 07/03/19 22:00 2.00 General Appearance: No Apparent Distress, WD/WN HEENT: PERRL/EOMI Respiratory: Chest Non Tender, Lungs Clear, Wheezing (minimal) Cardiovascular: Regular Rate, Rhythm Allergies: Coded Allergies: No Known Drug Allergies (Unverified , 12/12/11) Discharge Summary Date of Admission Jul 03, 2019 at 21:38 Date of Discharge July 04, 2019 Discharge Diagnosis (1) Asthma with acute exacerbation in adult Status: Acute Assessment & Plan: improved Qualifiers: Qualified Codes: J45.21 - Mild intermittent asthma with (acute) exacerbation (2) Anxiety Assessment & Plan: following up with [facility] Clinical Quality Measures DVT/VTE Risk/Contraindication: Risk Factor Score Per Nursin RFS Level Per Nursing on Admit: 1=Low/No VTE PPX KWESI GOMEZ MD Jul 04, 2019 10:27
[2019-07-04] MEDS ORDERED: PRED5TAB PO (10:34)
[2019-07-04] MEDS ORDERED: FLUT1DIS26 IH (10:34)
[2019-07-04] MEDS ORDERED: RT-ALBUINH INH (10:40)
[2019-07-04] MEDS ORDERED: PROP20TA5 PO (10:40)
== END 2019-07-04 11:00 | disposition home or self-care (01) ==
LOC: EDUNIT# 20:24 → ER 20:25 → 4TH 21:38
PROVIDERS: ADMIT Family Medicine; ATTEND Family Medicine
DX: J45.21 Mild intermittent asthma with (acute) exacerbation (principal); I10 Essential (primary) hypertension; M19.90 Unspecified osteoarthritis, unspecified site; F17.210 Nicotine dependence, cigarettes, uncomplicated; F41.9 Anxiety disorder, unspecified; Z83.6 Family history of other diseases of the respiratory system; Z82.49 Family history of ischemic heart disease and other diseases of the circulatory system
CPT/HCPCS: 36415; 71045; 80053; 82550; 82553; 83735; 83874; 83880; 84484; 85025; 85610; 85730; 87804; 93005; 93041; 94640; 96374; 96375; G0378